=== PATIENT | male | born 1985 | race African-American/Black ===

== ENCOUNTER 2017-04-09 00:06 | Emergency (ER) | payer SELFPAY ==
[~2017-04-09] VITALS: Ht 160 cm; Wt 72.6 kg
[2017-04-09 00:11] VITALS: Ht 160 cm; Wt 72.6 kg
[2017-04-09 00:43] LABS: BASOPHILS % 0.4 % (0.0-2.0); EOSINOPHILS # 0.3 10^3/ul (0.0-0.5); EOSINOPHILS % 2.9 % (0.0-7.0); HEMATOCRIT 46.9 % (42.0-52.0); HEMOGLOBIN 15.3 g/dl (14.0-18.0); LYMPHOCYTES # 2.5 10^3/ul (0.8-2.9); LYMPHOCYTES % 24.4 % (15.0-51.0); MEAN CORPUSCULAR HEMOGLOBIN 29.6 pg (29.0-33.0); MEAN CORPUSCULAR HGB CONC 32.6 g/dl (32.0-37.0); MEAN CORPUSCULAR VOLUME 90.7 fl (82.0-101.0); MEAN PLATELET VOLUME 10.4 fl (7.4-10.4); MONOCYTES % 9.3 % (0.0-11.0); NEUTROPHIL # 6.5 10^3/ul (1.6-7.5); NEUTROPHILS % 62.7 % (39.0-77.0); PLATELET COUNT 302 10^3/UL (140-415); RED BLOOD COUNT 5.17 10^6/ul (4.70-6.10); RED CELL DISTRIBUTION WIDTH 13.2 % (11.5-14.5); WHITE BLOOD COUNT 10.4 10^3/ul (4.8-10.8)
[2017-04-09 01:06] LABS: ALANINE AMINOTRANSFERASE 29 IU/L (13-69); ALBUMIN 4.5 g/dl (3.3-4.9); ALBUMIN/GLOBULIN RATIO 1.21; ALKALINE PHOSPHATASE 102 IU/L (42-121); ANION GAP 14 (8-16); ASPARTATE AMINO TRANSFERASE 34 IU/L (15-46); BILIRUBIN,INDIRECT 0.6 mg/dl (0-1.1); BILIRUBIN,TOTAL 0.6 mg/dl (0.2-1.3); BLOOD UREA NITROGEN 22 mg/dl (7-20); CALCIUM 9.5 mg/dl (8.4-10.2); CARBON DIOXIDE 30 mmol/L (21-31); CHLORIDE 104 mmol/L (97-110); CREATININE 1.02 mg/dl (0.61-1.24); GLUCOSE 79 mg/dl (70-220); SODIUM 144 mmol/L (135-144); TOTAL PROTEIN 8.2 g/dl (6.1-8.1)
[2017-04-09 01:13] LABS: ADD UMIC NO; UR ASCORBIC ACID 40 mg/dL (NEGATIVE); UR BILIRUBIN (Dip) NEGATIVE (NEGATIVE); UR BLOOD (Dip) NEGATIVE (NEGATIVE); UR CLARITY CLEAR (CLEAR); UR COLOR YELLOW (YELLOW); UR GLUCOSE (Dip) NEGATIVE (NEGATIVE); UR KETONES (Dip) 1+ mg/dL (NEGATIVE); UR LEUKOCYTE ESTERASE (Dip) NEGATIVE Leu/ul (NEGATIVE); UR NITRITE (Dip) NEGATIVE (NEGATIVE); UR TOTAL PROTEIN (Dip) NEGATIVE (NEGATIVE); UR UROBILINOGEN (Dip) 2+ mg/dL (NEGATIVE)
[2017-04-09] MEDS ORDERED: OLANZAPINE 5 MG TAB PO ONE (02:00)
--- NOTE | 2017-04-09 03:56 | ERD ---
ER Documentation Chief Complaint Chief Complaint MYKE, pt verbalizes I am seeing things, I am paranoid (talking to himself) HPI 31-year-old male comes emergency room because he is having trouble with his mind. He states that he is having auditory hallucinations. Currently is denying visual hallucinations but reported that on triage. Says he used to be on medication he does not remember the name. He is not having thoughts of hurting himself or others but wants help. Denies any physical symptoms or pain. ROS All systems reviewed and are negative except as per history of present illness. Medications Home Meds No Active Prescriptions or Reported Meds Allergies Allergies: Coded Allergies: Penicillins (Verified Allergy, Unknown, 04/09/17) PMhx/Soc Hx Alcohol Use: Yes Hx Substance Use: Yes (methamphetamine) Hx Tobacco Use: Yes Smoking Status: Current every day smoker Physical Exam Vitals Vital Signs Date Time Temp Pulse Resp B/P Pulse Ox O2 Delivery O2 Flow Rate FiO2 04/09/17 00:33 98.6 90 20 122/87 100 Room Air 04/09/17 00:11 98.4 87 20 122/87 100 Physical Exam Const: [] No physical distress Head: Atraumatic Eyes: Normal Conjunctiva ENT: Normal External Ears, Nose and Mouth. Neck: Full range of motion..~ No meningismus. Resp: Clear to auscultation bilaterally Cardio: Regular rate and rhythm, no murmurs Abd: Soft, non tender, non distended. Normal bowel sounds Skin: No petechiae or rashes Ext: No cyanosis, or edema Neur: Awake and alert oriented 3, no focal deficits Psych: She has Result Diagram: 04/09/17 0025 04/09/17 0025 Results 24 hrs Laboratory Tests Test 04/09/17 00:25 04/09/17 00:30 White Blood Count 10.410^3/ul Red Blood Count 5.1710^6/ul Hemoglobin 15.3g/dl Hematocrit 46.9% Mean Corpuscular Volume 90.7fl Mean Corpuscular Hemoglobin 29.6pg Mean Corpuscular Hemoglobin Concent 32.6g/dl Red Cell Distribution Width 13.2% Platelet Count 74675^3/UL Mean Platelet Volume 10.4fl Neutrophils % 62.7% Lymphocytes % 24.4% Monocytes % 9.3% Eosinophils % 2.9% Basophils % 0.4% Nucleated Red Blood Cells % 0.0/100WBC Neutrophils # 6.510^3/ul Lymphocytes # 2.510^3/ul Monocytes # 1.010^3/ul Eosinophils # 0.310^3/ul Basophils # 0.010^3/ul Nucleated Red Blood Cells # 0.010^3/ul Sodium Level 144mmol/L Potassium Level 4.0mmol/L Chloride Level 104mmol/L Carbon Dioxide Level 30mmol/L Anion Gap 14 Blood Urea Nitrogen 22mg/dl Creatinine 1.02mg/dl Glucose Level 79mg/dl Calcium Level 9.5mg/dl Total Bilirubin 0.6mg/dl Direct Bilirubin 0.00mg/dl Indirect Bilirubin 0.6mg/dl Aspartate Amino Transf (AST/SGOT) 34IU/L Alanine Aminotransferase (ALT/SGPT) 29IU/L Alkaline Phosphatase 102IU/L Total Protein 8.2g/dl Albumin 4.5g/dl Globulin 3.70g/dl Albumin/Globulin Ratio 1.21 Salicylates Level Pending Acetaminophen Level Pending Ethyl Alcohol Level Pending Urine Color YELLOW Urine Clarity CLEAR Urine pH 6.0 Urine Specific [place] 1.030 Urine Ketones 1+mg/dL Urine Nitrite NEGATIVEmg/dL Urine Bilirubin NEGATIVEmg/dL Urine Urobilinogen 2+mg/dL Urine Leukocyte Esterase NEGATIVELeu/ul Urine Hemoglobin NEGATIVEmg/dL Urine Glucose NEGATIVEmg/dL Urine Total Protein NEGATIVEmg/dl Current Medications Medications (Trade) Dose Ordered Sig/Donald Route PRN Reason Start Time Stop Time Status Last Admin Dose Admin Olanzapine (Zyprexa) 10 mg ONCE ONCE PO 04/09/17 02:00 04/09/17 02:01 DC 04/09/17 02:45 Procedures/MDM 31-year-old male experiencing acute psychosis with auditory hallucinations. Was given Zyprexa 10 mg in ER which slightly improved his symptoms. He was evaluate by tele-psychiatry who recommends a hold and transfer to a psychiatric facility. He is medically cleared from the standpoint that I see no medical issue that would preclude him from psychiatric admission. Departure Diagnosis: Primary Impression: Acute psychosis Condition: Stable GONZALEZ HUERTA Apr 09, 2017 03:56
[2017-04-09 03:57] LABS: ACETAMINOPHEN < 10.0 ug/ml (10.0-30.0); ETHANOL < 10.0 mg/dl; SALICYLATE < 1.0 mg/dl (5.0-30.0)
--- NOTE | 2017-04-09 04:25 | PSY ---
Date/Time of Note Date/Time of Note DATE: 04/09/17 TIME: 04:01 Psychiatric Subjective Eval Consent Pt consented to telemedicine: Yes Subjective Evaluation Patient location: emergency Chief Complaint: BIBA, pt verbalizes I am seeing things, I am paranoid ( talking to himself) Reason for consult: Pt states wants to hurt himself History of present illness patient is a 31 yo male with PPH Of depression and amphetamine abuse who was BIBA due to being agitated, patient was very paranoid on admission, he tells me that he is feeling suicidal with no plan , he has been hearing voices and feeling very paranoid that people are after him, he states that he has been using street drug but cant tell me which one, he has been admitted to a psych facility before and has been taking medication but cant remember which medication, he denies any HI, but stilll feel suicidal and wants to be admitted. Past psychiatric history past suicidal attempt yes Hospitalization: other Medical history Problems Medical Problems: (1) Acute psychosis Status: Acute Allergies: Coded Allergies: Penicillins (Verified Allergy, Unknown, 04/09/17) Substance Abuse Substance abuse history: Yes (meth ) Prior substance abuse treatmen: Yes Social History Marital status: single Level of education: hs DPA/Conservatorship: No Occupation/Group Home: no Psychiatric Objective Eval Review of Systems: Review of Systems: Not Applicable Physical Examination: Physical Examination: Applicable Sleep: Insomnia Appetite: Decreased Energy: Decreased Interest: Decreased Mental Status Examination: Appearance: Disheveled Eye Contact: Good Psychomotor Activity: Normal Behavior: Cooperative Speech: Pressured, Disorganized AFFECT: Depressed Mood: Anxious Though Process: Loose Thought Content: Hallucinations Suicidal: Yes Homicidal: No On 72 hour hold: No Cognition: Drowsy Insight: Impared Judgement: Impared Attention Span: Distractible Laboratory Results Laboratory Tests Test 04/09/17 00:25 04/09/17 00:30 White Blood Count 10.410^3/ul Red Blood Count 5.1710^6/ul Hemoglobin 15.3g/dl Hematocrit 46.9% Mean Corpuscular Volume 90.7fl Mean Corpuscular Hemoglobin 29.6pg Mean Corpuscular Hemoglobin Concent 32.6g/dl Red Cell Distribution Width 13.2% Platelet Count 67127^3/UL Mean Platelet Volume 10.4fl Neutrophils % 62.7% Lymphocytes % 24.4% Monocytes % 9.3% Eosinophils % 2.9% Basophils % 0.4% Nucleated Red Blood Cells % 0.0/100WBC Neutrophils # 6.510^3/ul Lymphocytes # 2.510^3/ul Monocytes # 1.010^3/ul Eosinophils # 0.310^3/ul Basophils # 0.010^3/ul Nucleated Red Blood Cells # 0.010^3/ul Sodium Level 144mmol/L Potassium Level 4.0mmol/L Chloride Level 104mmol/L Carbon Dioxide Level 30mmol/L Anion Gap 14 Blood Urea Nitrogen 22mg/dl Creatinine 1.02mg/dl Glucose Level 79mg/dl Calcium Level 9.5mg/dl Total Bilirubin 0.6mg/dl Direct Bilirubin 0.00mg/dl Indirect Bilirubin 0.6mg/dl Aspartate Amino Transf (AST/SGOT) 34IU/L Alanine Aminotransferase (ALT/SGPT) 29IU/L Alkaline Phosphatase 102IU/L Total Protein 8.2g/dl Albumin 4.5g/dl Globulin 3.70g/dl Albumin/Globulin Ratio 1.21 Salicylates Level < 1.0mg/dl Acetaminophen Level < 10.0ug/ml Ethyl Alcohol Level < 10.0mg/dl Urine Color YELLOW Urine Clarity CLEAR Urine pH 6.0 Urine Specific [place] 1.030 Urine Ketones 1+mg/dL Urine Nitrite NEGATIVEmg/dL Urine Bilirubin NEGATIVEmg/dL Urine Urobilinogen 2+mg/dL Urine Leukocyte Esterase NEGATIVELeu/ul Urine Hemoglobin NEGATIVEmg/dL Urine Glucose NEGATIVEmg/dL Urine Total Protein NEGATIVEmg/dl Assessment and Plan Assessment/Diagnosis [place] I: psychosis nos [place] II: deferred [place] III: as per record [place] IV: poor social support [place] V: gaf 25 Recommendation/Plan Follow-up/Disposition Please admit patient on unvoluntary status due to Danger to self, In my opinion, patient currently MEETS criterion for inpatient care and CANNOT be safely treated at a lower level of care today as evidenced by the following risk factors: Current and Recent Suicidal Ideation Previous suicide attempt and severe self-destructive behavior Intense feelings of hopelessness and lack of future orientation. Significant recent DETERIORATION in function, behavior and thought processes Command hallucinations with violent content Substance ABUSE in conjunction with another psychiatric disorder Non-Compliance with Outpatient Treatment Patient has failed outpatient and requires further inpatient assessment Medication changes require observation unavailable at a lower level of care. [id number] Recommendation: EDMUND Waldrop MD Apr 09, 2017 04:12
[2017-04-09 04:27] LABS: BARBITURATES Negative (NEGATIVE); BENZODIAZEPINES Positive (NEGATIVE); CANNABINOIDS Negative (NEGATIVE); COCAINE Negative (NEGATIVE); OPIATES Negative (NEGATIVE)
[2017-04-09] MEDS ORDERED: DIPHENHYDRAMINE 25 MG CAP PO ONE (08:00)
[2017-04-09] MEDS ORDERED: ALBUTEROL HFA 8 GM INHALER INH SCH (09:00)
[2017-04-09 11:36] VITALS: BP 97/69; PULSE 89; RESP 18; TEMP 97.9
== END 2017-04-09 11:45 ==
LOC: E/R 00:06
DX: F29 Unspecified psychosis not due to a substance or known physiological condition (principal); F17.210 Nicotine dependence, cigarettes, uncomplicated; R40.2142 Coma scale, eyes open, spontaneous, at arrival to emergency department; R40.2252 Coma scale, best verbal response, oriented, at arrival to emergency department; R40.2362 Coma scale, best motor response, obeys commands, at arrival to emergency department
CPT/HCPCS: 80053; 80306; 80307; 81003; 85025

== ENCOUNTER 2017-07-12 04:42 | Inpatient (IN) | END 2017-07-19 20:12 | disposition EXP | DRG 917 ==

== ENCOUNTER 2017-07-19 20:21 | Inpatient (IN) | END 2017-07-24 03:03 | disposition EXP | DRG 951 ==